=== PATIENT | female | born 1975 | race Caucasian/White ===

== ENCOUNTER 2017-06-29 09:21 | Day surgery (SDC) | payer BC ==
[~2017-06-29] VITALS: Ht 167.6 cm; Wt 113.4 kg
[~2017-06-29 09:21] MED LIST: ARIP10TA10 PO; CALC1CAP8 PO; CETI10TA17 PO; DIPH1TAB25 PO; DULO60CA6 PO; ETOD500T PO; ETOD500T2 PO; FERR240T5 PO; FEXO-104 PO; FNT100TD TD; GBPN600T PO; GELA650C4 PO; HYDR118S10 PO; LVT.1T PO; MONT10TA24 PO; NECON 1/35 PO; NECON PO; NF-ESTR1.5 PO; OLME20TA21 PO; OLME5TAB3 PO; PHEN-452 PO; PHEN37.53 PO; PRAM0.5T9 PO; PRAZ2CAP2 PO; QUET150T PO; QUET300T; QUET300T2 PO; ROSU10TA PO; TEMA30CA PO; THYR180T2 PO; TRIA16.5 NS; VALE1POW MC; VORT10TA PO; ZLP10T PO; [UNRECOGNIZED DRUG - CODE]; [UNRECOGNIZED DRUG - CODE] PO; [UNRECOGNIZED DRUG - OTHER]
--- OUTSIDE RECORDS SUMMARY | 2017-06-29 09:24 | XMS REPORT ---
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 Role Phone WASHINGTON CRUZ Unavailable Unavailable PROBLEMS Type Condition ICD9-CM Code [id number] Code Onset Dates Condition Status SNOMED Code Problem PTSD (post-traumatic stress disorder) F43.10 Active 06594990 Problem Major depressive disorder, recurrent episode, severe, specified as with psychotic behavior 296.34 Active 94093203 Problem Need for prophylactic vaccination and inoculation, Influenza V04.81 Active 375418473 Problem Posttraumatic stress disorder 309.81 Active 71986469 Problem Unspecified episodic mood disorder 296.90 Active [id number] ALLERGIES Unknown Allergies SOCIAL HISTORY No smoking Hx information available PLAN OF CARE Activity Details Follow Up Next available Reason: VITAL SIGNS MEDICATIONS Unknown Medications RESULTS No Results PROCEDURES Procedure Date Ordered Related Diagnosis Body Site Psychotherapy, patient &/family, 30 minutes, established patient Dec 28, 2015 IMMUNIZATIONS No Known Immunizations
--- OUTSIDE RECORDS SUMMARY | 2017-06-29 09:24 | XMS REPORT ---
Author Author WASHINGTON CRUZ [facility] Address Unknown Phone Unavailable Care Team Providers Care Clerical Office Name Role Phone WASHINGTON CRUZ Unavailable Unavailable PROBLEMS Type Condition ICD9-CM Code ZTL14-CX Code Onset Dates Condition Status SNOMED Code Problem Major depressive disorder, recurrent episode, severe, specified as with psychotic behavior 296.34 Active 92525134 Problem Posttraumatic stress disorder 309.81 Active 55467350 Assessment PTSD (post-traumatic stress disorder) F43.10 Jul, Active 08876781 Problem Unspecified episodic mood disorder 296.90 Active 959749398 Problem Need for prophylactic vaccination and inoculation, Influenza V04.81 Active 262272665 ALLERGIES Unknown Allergies SOCIAL HISTORY No smoking Hx information available PLAN OF CARE VITAL SIGNS MEDICATIONS Unknown Medications RESULTS No Results PROCEDURES Procedure Date Ordered Related Diagnosis Body Site Psychotherapy, patient &/family, 45 minutes, established patient August 28, 2015 IMMUNIZATIONS No Known Immunizations
--- OUTSIDE RECORDS SUMMARY | 2017-06-29 09:24 | XMS REPORT ---
Author Author WASHINGTON CRUZ [facility] [employer] Address Unknown Phone Unavailable Care Team Providers Care Prevention Rn Name Role Phone WASHINGTON CRUZ CP Unavailable Allergies No Known Allergies Problems Problem Type Condition Code Onset Dates Condition Status Problem Major depressive disorder, recurrent episode, severe, specified as with psychotic behavior 296.34 Active Problem Posttraumatic stress disorder 309.81 Active Problem PTSD (post-traumatic stress disorder) F43.10 Active Assessment PTSD (post-traumatic stress disorder) F43.10 Active Problem Unspecified episodic mood disorder 296.90 Active Problem Need for prophylactic vaccination and inoculation, Influenza V04.81 Active Medications No Known Medications Procedures Procedure Coding System Code Date Psychotherapy, patient &/family, 45 minutes, established patient CPT-4 89440 Dec 14, 2015 Results No Known Results Summary Purpose [employer] Submission
--- OUTSIDE RECORDS SUMMARY | 2017-06-29 09:24 | XMS REPORT | Continuity of Care Document ---
Author Author [facility] Address Unknown Phone Unavailable Allergies Active Description Code Type Severity Reaction Onset Reported/Identified Relationship to Patient Clinical Status Yes Wellbutrin Drug Allergy N/A N/A 03/29/2013 Yes bupropion [id number] Drug Allergy Unknown N/A 06/24/2017 Yes pseudoephedrine [id number] Drug Allergy Unknown N/A 06/24/2017 Yes triprolidine [id number] Drug Allergy Unknown N/A 06/24/2017 Medications There is no data. Problems Date Dx Coded Attending Type Code Diagnosis Diagnosed By 10/11/2012 309.81 AN PTSD 10/11/2012 309.81 AN PTSD 10/11/2012 309.81 AN PTSD 10/11/2012 ALEJANDRO ANDRADE PHD 309.81 AN PTSD 10/11/2012 ALEJANDRO ANDRADE PHD 309.81 AN PTSD 10/11/2012 LA MUÑIZ APRN 309.81 AN PTSD 10/11/2012 ALEJANDRO ANDRADE PHD 309.81 AN PTSD 10/11/2012 LA MUÑIZ APRN 309.81 AN PTSD 10/11/2012 LA MUÑIZ APRN 309.81 AN PTSD 10/11/2012 LA MUÑIZ APRN 309.81 AN PTSD 10/11/2012 LA MUÑIZ APRN 309.81 AN PTSD 10/19/2012 296.90 MOOD DISORDER NOS 10/19/2012 296.90 MOOD DISORDER NOS 10/19/2012 ALEJANDRO ANDRADE PHD 296.90 MOOD DISORDER NOS 10/19/2012 ALEJANDRO ANDRADE PHD 296.90 MOOD DISORDER NOS 10/19/2012 LA MUÑIZ APRN 296.90 MOOD DISORDER NOS 10/19/2012 ALEJANDRO ANDRADE PHD 296.90 MOOD DISORDER NOS 10/19/2012 LA MUÑIZ APRN 296.90 MOOD DISORDER NOS 10/19/2012 LA MUÑIZ APRN 296.90 MOOD DISORDER NOS 10/19/2012 LA MUÑIZ APRN 296.90 MOOD DISORDER NOS 10/19/2012 LA MUÑIZ APRN 296.90 MOOD DISORDER NOS 11/04/2012 296.34 MO DEPRESSIVE RECURRENT SEVERE WITH PSYCHOTIC BEHAVIOR 11/04/2012 LUPE LUIS, ALEJANDRO Brower 296.34 MO DEPRESSIVE RECURRENT SEVERE WITH PSYCHOTIC BEHAVIOR 11/04/2012 ALEJANDRO ANDRADE PHD 296.34 MO DEPRESSIVE RECURRENT SEVERE WITH PSYCHOTIC BEHAVIOR 11/04/2012 LA MUÑIZ APRN 296.34 MO DEPRESSIVE RECURRENT SEVERE WITH PSYCHOTIC BEHAVIOR 11/04/2012 LUPE LUIS, ALEJANDRO Brower 296.34 MO DEPRESSIVE RECURRENT SEVERE WITH PSYCHOTIC BEHAVIOR 11/04/2012 LA MUÑIZ APRN 296.34 MO DEPRESSIVE RECURRENT SEVERE WITH PSYCHOTIC BEHAVIOR 11/04/2012 LA MUÑIZ APRN 296.34 MO DEPRESSIVE RECURRENT SEVERE WITH PSYCHOTIC BEHAVIOR 11/04/2012 AL MUÑIZ APRN 296.34 MO DEPRESSIVE RECURRENT SEVERE WITH PSYCHOTIC BEHAVIOR 11/04/2012 LA MUÑIZ APRN 296.34 MO DEPRESSIVE RECURRENT SEVERE WITH PSYCHOTIC BEHAVIOR 12/28/2012 LA MUÑIZ APRN V04.81 FLU SHOT 12/28/2012 LUPE LUIS, ALEJANDRO Brower V04.81 FLU SHOT 12/28/2012 LA MUÑIZ APRN V04.81 FLU SHOT 12/28/2012 LA MUÑIZ APRN V04.81 FLU SHOT 12/28/2012 LA MUÑIZ APRN V04.81 FLU SHOT 12/28/2012 LA MUÑIZ APRN V04.81 FLU SHOT 04/13/2013 ASHLEY HOPPER MD Ot 723.1 CERVICALGIA 04/13/2013 ASHLEY HOPPER MD Ot V57.1 PHYSICAL THERAPY NEC 04/18/2013 MARLENE SARMIENTO MD Ot 354.0 CARPAL TUNNEL SYNDROME 04/22/2013 BILLIE WOODRUFF APRN Ot 300.00 ANXIETY STATE NOS 04/22/2013 BILLIE WOODRUFF APRN Ot 346.90 MIGRAINE UNSPECIFIED W/O INTRACT MGRN W/ 04/22/2013 BILLIE WOODRUFF APRN Ot 780.4 DIZZINESS AND GIDDINESS 08/08/2013 REVEAL MARLENE KERR Ot 354.0 CARPAL TUNNEL SYNDROME 08/08/2013 REVEAL MARLENE KERR Ot V74.8 SCREEN-BACTERIAL DIS NEC 01/31/2016 WARD KERR, ASHLEY Bo Ot 723.0 CERVICAL SPINAL STENOSIS 01/31/2016 REVEAL MARLENE KERR Ot 354.0 CARPAL TUNNEL SYNDROME 01/31/2016 REVEAL MARLENE KERR Ot V72.83 EXAM PRE-OPERATIVE NEC 01/31/2016 REVEAL MARLENE KERR Ot V74.8 SCREEN-BACTERIAL DIS NEC 01/31/2016 REVEAL MARLENE KERR Ot 354.0 CARPAL TUNNEL SYNDROME 01/31/2016 REVEAL MARLENE KERR Ot V72.84 EXAM PRE-OPERATIVE NOS 02/01/2016 KING KERR, ANDRES Brower Ot M79.672 PAIN IN LEFT FOOT 02/13/2016 ANDRES MALIK MD Ot M79.672 PAIN IN LEFT FOOT Procedures Code [place] [address] PSYCH DIAGNOSTIC EVALUATION 10/11/2012 69554 PSYTX PT&/FAMILY 45 MINUTES 10/20/2012 78858 PSYCH DIAG EVAL W/MED SRVCS 11/09/2012 71508 PSYTX PT&/FAMILY 45 MINUTES 11/09/2012 89581 PSYTX PT&/FAMILY 45 MINUTES 11/22/2012 54767 PSYTX PT&/FAMILY 45 MINUTES 12/06/2012 88977 PSYTX PT&/FAMILY 45 MINUTES 01/03/2013 Results There is no data. Encounters ACCT No. Visit Date/Time Discharge Status Pt. Type Provider Facility Loc./Unit Complaint [id number] 03/29/2013 15:51:00 03/29/2013 23:59:59 CLS Outpatient LA MUÑIZ APRN [id number] 01/04/2013 12:53:00 01/04/2013 23:59:59 CLS Outpatient LA MUÑIZ APRN [id number] 01/04/2013 12:53:00 01/04/2013 23:59:59 CLS Outpatient LA MUÑIZ APRN [id number] 12/31/2012 08:48:00 12/31/2012 23:59:59 CLS Outpatient LUPE LUIS, ALEJANDRO Brower [id number] 12/28/2012 14:47:00 12/28/2012 23:59:59 CLS Outpatient LA MUÑIZ APRN [id number] 12/28/2012 14:47:00 12/28/2012 23:59:59 CLS Outpatient LA MUÑIZ APRN [id number] 12/03/2012 13:40:00 12/03/2012 23:59:59 CLS Outpatient ALEJANDRO ANDRADE PHD [id number] 11/19/2012 08:48:00 11/19/2012 23:59:59 CLS Outpatient ALEJANDRO ANDRADE PHD [id number] 11/05/2012 08:48:00 Document Registration [id number] 10/19/2012 16:31:00 Document Registration [id number] 10/11/2012 09:53:00 Document Registration [id number] 06/24/2017 06:08:00 06/24/2017 16:17:00 DIS Outpatient BRANDON ALARCON MD [facility] PREOP EGD [id number] 01/31/2016 10:07:00 01/31/2016 23:59:59 CLS Outpatient ANDRES MALIK MD [facility] RAD LT FOOT PAIN [id number] 08/08/2013 07:54:00 08/08/2013 12:05:00 DIS Outpatient MARLENE SARMIENTO MD Via [facility] LEFT CARPAL TUNNEL SYNDROME [id number] 08/03/2013 09:02:00 08/03/2013 23:59:59 [facility] [id number] 04/22/2013 14:39:00 04/22/2013 17:30:00 DIS Emergency BILLIE WOODRUFF APRN [facility] ER MULTIPLE COMPLAINTS [id number] 04/18/2013 06:08:00 04/18/2013 10:00:00 DIS Outpatient MARLENE SARMIENTO MD Via [facility] RIGHT CARPAL TUNNEL SYNDROME [id number] 04/13/2013 08:04:00 04/13/2013 17:00:00 DIS Outpatient ASHLEY HOPPER MD [facility] REHAB CERVICALGIA [id number] 04/12/2013 09:00:00 04/12/2013 23:59:59 CLS Outpatient MARLENE SARMIENTO MD [facility] PREOP RIGHT CARPAL TUNNEL SYNDROME [id number] 03/25/2013 12:35:00 03/25/2013 23:59:59 CLS Outpatient WARD KERR, ASHLEY Bo [facility] RAD CERVICAL PAIN [id number] 06/29/2017 11:45:00 PEN Preadmit AGNES KERR, BRANDON [place] [facility] ENDO DYSPAGIA [id number] 12/18/2016 15:31:59 12/18/2016 23:59:59 CLS Outpatient Nick [place]
[2017-06-29] MEDS ORDERED: NS IV 500 ML 500 ML IV PRN (09:35)
[2017-06-29 09:45] VITALS: BP 114/62
[2017-06-29] MEDS ORDERED: fentaNYL INJECTION 100 MCG/2 ML AMP IVP PRN (09:45)
[2017-06-29] MEDS ORDERED: HURRICAINE EXT TUBE (BENZOCAINE) XX PRN (09:45)
[2017-06-29] MEDS ORDERED: NS IV 500 ML 500 ML ONE (10:11)
[2017-06-29] MEDS ORDERED: MIDAZOLAM 2 MG/2 ML (VERSED) VIAL ONE ×3 (12:05)
[2017-06-29] MEDS ORDERED: fentaNYL INJECTION 100 MCG/2 ML AMP ONE (12:05)
--- NOTE | 2017-06-29 12:13 | History & Physicial ---
History of Present Illness History of Present Illness Reason for visit/HPI to undergo an upper endoscopy regarding dysphagia Date of Admission 06/29/17 Date Seen by Provider: Jun 29, 2017 Time Seen by Provider: 12:07 I consulted on this patient on 06/29/17 12:06 Attending Physician Brandon Zamora MD Admitting Physician Merrill Becker MD Consult Allergies and Home Medications Allergies Coded Allergies: bupropion (Verified Allergy, Unknown, 06/24/17) pseudoephedrine (Verified Allergy, Unknown, 06/24/17) triprolidine (Verified Allergy, Unknown, 06/24/17) Home Medications Aripiprazole 10 Mg Tablet, 10 MG PO DAILY, (Reported) Calcium Carb/D3/Mag Aa Chelate 1 Each Capsule, 1 CAP PO BID, (Reported) Cetirizine HCl 10 Mg Tablet, 10 MG PO DAILY, (Reported) Cetirizine Hcl 10 Mg Tablet, 10 MG PO DAILY, (Reported) Diphenoxylate HCl/Atropine 1 Each Tablet, 1 EACH PO QID, (Reported) Estropipate 1.5 Mg Tab, 0.75 MG PO DAILY, (Reported) Etodolac 500 Mg Tab.er.24h, 500 MG PO BID, (Reported) Ferrous Gluconate 240 Mg Tablet, 27 MG PO DAILY, (Reported) Flurazepam Hcl 15 Mg Capsule, 2 CAP PO HS Prescribed by: TARUN WOLF on 08/08/13 0911 Gelatin 650 Mg Capsule, 1,300 MG PO DAILY, (Reported) Levothyroxine Sodium 100 Mcg Tablet, 100 MCG PO DAILY, (Reported) Montelukast Sodium 10 Mg Tablet, 10 MG PO DAILY, (Reported) Olmesartan Medoxomil 5 Mg Tablet, 5 MG PO DAILY, (Reported) Olmesartan Medoxomil 20 Mg Tablet, 5 MG PO DAILY, (Reported) Phentermine HCl 37.5 Mg Tablet, 37.5 MG PO DAILY, (Reported) Quetiapine Fumarate 150 Mg Tab.sr.24h, 150 MG PO DAILY, (Reported) Quetiapine Fumarate 300 Mg Tablet, 300 MG PO DAILY, (Reported) Rosuvastatin Calcium 10 Mg Tablet, 10 MG PO DAILY, (Reported) Temazepam 30 Mg Capsule, 30 MG PO HS, (Reported) Thyroid,Pork 180 Mg Tablet, 180 MG PO DAILY, (Reported) Triamcinolone Acetonide 16.5 Gm [place], 1 SPRAY NS DAILY, (Reported) Valerian Root 1,000 Gm Powder, 3,000 GM MC PRN PRN for INSOMNIA, (Reported) Vortioxetine Hydrobromide 10 Mg Tablet, 10 MG PO DAILY, (Reported) Zolpidem Tartrate 10 Mg Tab, 10 MG PO HS PRN for SLEEP, (Reported) NEEDED FOR SLEEP [Necon 50] , 1 TAB PO DAILY, (Reported) Patient Home Medication List Home Medication List Reviewed: Yes Past Jffwbth-Rmmbvm-Qcsjeb Hx Patient Social History Marrital Status: Employed/Student: unemployed Alcohol Use: Denies Use Recreational Drug Use: No Smoking Status: Former Smoker Former Smoker, Quit: Jun 24, 2004 Recent Foreign Travel: No Contact w/other who traveled: No Recent Hopitalizations: No Recent Infectious Disease Expo: No Immunizations Up To Date Date of Pneumonia Vaccine: Nov 30, 2009 Date of Influenza Vaccine: Dec 15, 2016 Seasonal Allergies Seasonal Allergies: Yes Surgeries Yes Appendectomy, Tonsillectomy, Tubal Ligation Cardiovascular Yes Heart Murmur, High Cholesterol, Irregular Heartbeat Neurological Yes Headaches /Migraines Reproductive System Hx Reproductive Disorders: No Sexually Transmitted Disease: No HIV/AIDS: No Gastrointestinal Yes Gastroesophageal Reflux, Chronic Diarrhea, Irritable Bowel Musculoskeletal Yes Degenerate Disk Disease, Arthritis, Chronic Back Pain Endocrine History of Endocrine Disorders: Yes Endocrine Disorders: Hypothyroidsim HEENT Loss of Vision: Denies Hearing Impairment: Denies Psychosocial History of Psychiatric Problem: Yes Behavioral Health Disorders: Anxiety, Depression Integumentary History of Skin or Integumenta: Yes Skin/Integumentary Disorders: Eczema Blood Transfusions Adverse Reaction to a Blood Tr: No (N/A) Constitutional: no symptoms reported EENTM: no symptoms reported Respiratory: no symptoms reported Cardiovascular: no symptoms reported Gastrointestinal: see HPI Genitourinary: no symptoms reported Musculoskeletal: back pain, joint pain Skin: see HPI, dryness Psychiatric/Neurological: Anxiety Physical Exam Vital Signs Vital Signs - First Documented 06/29/17 09:45 Temp 99.1 Pulse 82 Resp 20 B/P (MAP) 114/62 (79) Pulse Ox 96 O2 Delivery Room Air Capillary Refill : General Appearance: No Apparent Distress Neck: Normal Inspection Respiratory: Lungs Clear Cardiovascular: Regular Rate, Rhythm Gastrointestinal: Non Tender, Soft Extremity: Normal Inspection Neurologic/Psychiatric: Alert, Oriented x3 Skin: Warm/Dry Assessment/Plan Assessment and Plan lady with dysphagia. For upper endoscopy with possible balloon dilatation. If no stricture is identified, she would be referred for esophageal manometry Admission Diagnosis Admission Status: Other (Outpt Proc) BRANDON ZAMORA MD Jun 29, 2017 12:13 pm
--- NOTE | 2017-06-29 12:14 | Conscious Sedation/ASA ---
Conscious Sedation Pre-Proced Time Reviewed: 12:14 ASA Class: 2 Airway Mallampati Classification: ([place] appropriate class) I. II. III, IV Lungs Heart ASA score ASA 1: a normal healthy patient ASA 2: a patient with a mild systemic disease (mid diabetes, controlled hypertension, obesity ASA 3: a patient with a severe systemic disease that limits activity (angina , COPD, prior Myocardial infarction) ASA 4: a patient with an incapacitating disease that is a constant threat to life (CHF, renal failure) ASA 5: a moribund patient not expected to survive 24 hrs. (ruptured aneurysm) ASA 6: a declared brain patient whose organs are being harvested. For emergent operations, add the letter E after the classification Grade 2 Sedation Plan: Discussed options with patient/fam Note The patient is an appropriate candidate to undergo the planned procedure, sedation, and anesthesia. The patient immediately re-assessed prior to indication. BRANDON ALARCON MD Jun 29, 2017 12:14 pm
[2017-06-29] MEDS: MIDAZOLAM 2 MG/2 ML (VERSED) VIAL IVP PRN ×3 (12:28→12:36)
--- NOTE | 2017-06-29 12:41 | Endo Procedure Record ---
Endo Procedure Report Date of Procedure Last Colonoscopy: Yes (UNSURE) Jun 29, 2017 Surgeon (s) BRANDON ALARCON MD Post Procedure/Op Diagnosis Severe esophagitis with a linear ulcer extending up to 30 cm from the incisor tooth Distal gastritis Procedure Performed EGD with antral biopsy Description of Procedure Anesthesia Type: Conscious Sedation Specimen(s) collected/removed antral mucosa for H. pylori Description of the Procedure Indication for the procedure: This lady came in for an upper endoscopy to investigate intermittent dysphagia. Informed consent was obtained after reviewing the procedure in detail. Description of the procedure: She was placed in left lateral decubitus position and her vital signs were monitored. Conscious sedation was achieved using Versed and fentanyl. The flexible gastroscope was introduced down the esophagus , past the stomach, into the proximal duodenum. Findings: Esophagus: Quite severe esophagitis with a linear ulcer extending proximally up to 30 cm from the incisor tooth. No stricture was identified. Stomach: Mild distal gastritis. Antral biopsy for H. pylori was obtained. Duodenum: Normal She tolerated the procedure well and was taken back to the nursing area in a stable condition. Impression: Dysphagia. No stricture. Severe esophagitis. Will treat with proton pump inhibitors Copies To: ANDRES MALIK MD, XAVIER M MD Jun 29, 2017 12:41 pm
[2017-06-29] MEDS ORDERED: PANT40TA2 PO (12:43)
--- NOTE | 2017-06-29 12:44 | Discharge Inst-Simple/Standard ---
Discharge Inst-Standard Discharge Medications New, Converted or Re-Newed RX: RX on Chart Patient Instructions/Follow Up Plan of Care/Instructions/FU: Follow-up with her primary in 2-3 weeks Activity as Tolerated: Yes Discharge Diet: No Restrictions BRANDON ALARCON MD Jun 29, 2017 12:44 pm
[2017-06-29] MEDS ORDERED: HURRICAINE EXT TUBE (BENZOCAINE) ONE (12:53)
[2017-06-29 13:05] VITALS: BP 132/69
[2017-06-29 13:25] VITALS: BP 127/66
[2017-06-29 13:35] VITALS: BP 127/66
[2017-06-29 13:45] VITALS: BP 127/66
== END 2017-06-29 13:45 | disposition home or self-care (01) ==
LOC: ENDO 09:21
PROVIDERS: ATTEND Surgery
DX: K20.9 Esophagitis, unspecified (principal); K25.9 Gastric ulcer, unspecified as acute or chronic, without hemorrhage or perforation; K29.70 Gastritis, unspecified, without bleeding; Z79.899 Other long term (current) drug therapy; Z87.891 Personal history of nicotine dependence; E78.00 Pure hypercholesterolemia, unspecified; F41.9 Anxiety disorder, unspecified; F32.9 Major depressive disorder, single episode, unspecified
CPT/HCPCS: 84703; 88305

== ENCOUNTER → 2017-09-18 | Outpatient (CLI) | payer BC ==
[~2017-09-18] MED LIST changes: +PANT40TA2 PO
--- NOTE | 2017-09-18 11:31 | Diagnostic Imaging Report ---
Indication: Pain Comparison: None Findings: Three views of the left ankle are obtained. No acute fracture or malalignment or osseous destructive process. Ankle joint space is preserved. There is mild soft tissue swelling. There is plantar calcaneal spurring. Impression: Soft tissue swelling without evidence of an acute osseous abnormality. Mild plantar calcaneal spurring. Dictated by: Dictated on workstation # [id number]
--- NOTE | 2017-09-18 11:41 | Diagnostic Imaging Report ---
INDICATION: Pain and popping in left ankle and to the top of the foot. Symptoms for over a month with no known injury.. TECHNIQUE: 3 views of the left foot CORRELATION STUDY: None FINDINGS: The osseous structures of the foot are intact. Joint spaces are maintained. Alignment anatomic. Prominent, 6 mm plantar calcaneal spur is present. Soft tissues appearing unremarkable. IMPRESSION: 1. Negative for acute findings of the foot. Dictated by: Dictated on workstation # [id number]
== END ==
LOC: RAD 10:29
DX: M77.32 Calcaneal spur, left foot (principal); M79.89 Other specified soft tissue disorders
CPT/HCPCS: 73610; 73630

== ENCOUNTER → 2017-11-12 | Outpatient (CLI) | payer BC ==
--- NOTE | 2017-11-12 13:05 | Diagnostic Imaging Report ---
PROCEDURE: MRI left joint lower extremity without contrast. TECHNIQUE: Multiplanar, multisequence non contrast-enhanced MRI of the left lower extremity was accomplished. INDICATION: Ankle pain. No prior studies are available for comparison. The marrow signal intensity of the ankle appears normal. No definite marrow edema is identified, although there does appear to be some mid foot degenerative changes noted on the sagittal sequences. Talar dome appears to be smooth. No osteochondral lesion is identified. The Achilles tendon has normal morphology and signal intensity. No tear is identified. The peroneus brevis and longus tendons are intact. The posterior tibialis, flexor digitorum and flexor hallucis longus tendons appear to be intact. The anterior and posterior syndesmotic ligaments as well as the anterior and posterior talofibular ligaments appear to be intact. The superficial and deep bundles of the deltoid appear to be intact. Minimal nonspecific edema in the subcutaneous tissues of the medial and lateral ankle is noted and unremarkable. No fluid collections are seen. IMPRESSION: Essentially unremarkable MRI of the left ankle. No ligamentous or tendinous abnormality is identified. Dictated by: Dictated on workstation # [id number]
== END ==
LOC: RAD 09:38
PROVIDERS: ATTEND Podiatrist
DX: M25.572 Pain in left ankle and joints of left foot (principal)
CPT/HCPCS: 73721

== ENCOUNTER → 2018-11-30 | Outpatient (CLI) | payer BC ==
[~2018-11-30] MED LIST changes: -ROSU10TA PO; +ROSU10TA22 PO
--- NOTE | 2018-11-30 12:43 | Diagnostic Imaging Report ---
INDICATION: Screening for osteoporosis. COMPARISON: None. FINDINGS: The bone mineral density in the hips and spine was measured. There are no prior studies available for comparison. The T score for the spine is -0.5. This value does fall within the range of normal. The total T score for the left hip is 0.4 and for the left femoral neck 0.0. The total T score for the right hip is 0.7. The T score for the right femoral neck is -0.2. AP Spine L1-L4: [BMD (g/cm2): 1.135] [T-Score: -0.5] [Z-Score: -1.7] [BMD Previous: na] [BMD % Change: na] LT Hip Neck: [BMD (g/cm2): 1.040] [T-Score: 0.0] [Z-Score: -0.2] LT Hip Total: [BMD (g/cm2):1.059] [T-Score:0.4] [Z-Score: -0.1] [BMD Previous: na] [BMD % Change: na] RT Hip Neck: [BMD (g/cm2):1.015] [T-Score:-0.2] [Z-Score:-0.4] RT Hip Total: [BMD (g/cm2):1.101] [T-score:0.7] [Z-Score:0.2] [BMD Previous:na] [BMD % Change:na] *Indicates significant change from prior examination based on 95% confidence level. World Health Organization criteria for BMD interpretation classify patients as Normal (T-score at or above -1.0), Osteopenic (T-score between -1.0 and -2.5) or Osteoporotic (T-score at or below -2.5). LIMITATIONS AND MODIFICATION: None. FRACTURE RISK (FRAX SCORE): The ten year probability of (%): Major Osteoporotic Fracture: [na] Hip Fracture: [na] IMPRESSION: 1. The bone mineral density of the hips and spine is within normal limits. 2. See below National Osteoporosis Foundation guidelines on when to potentially initiate pharmacologic therapy. Based on the National Osteoporosis Foundation Guidelines, pharmacologic treatment should be initiated in any of the following, unless clinical conditions suggest otherwise: * Any patient with prior fragility fracture of the hip or vertebrae. A spine fracture indicates 5X risk for subsequent spine fracture and 2X risk for subsequent hip fracture. * Osteoporosis (T-score <-2.5). * Postmenopausal women and men age 50 and older with low bone mass/osteopenia (T-score between -1.0 and -2.5) by DXA and 10-year major osteoporotic fracture greater than 20% or a 10-year probability of hip fracture greater than 3%. These fracture risks are supplied above in the FRAX score, if applicable. * Clinician judgement and/or patient preferences may indicate treatment for people with 10-year fracture probabilities above or below these levels. Dictated by: Dictated on workstation # [id number]
== END ==
LOC: RAD 11:02
DX: Z13.820 Encounter for screening for osteoporosis (principal); M81.0 Age-related osteoporosis without current pathological fracture
CPT/HCPCS: 77080

== ENCOUNTER → 2019-03-22 | Outpatient (CLI) | payer BC ==
--- NOTE | 2019-03-22 09:29 | Diagnostic Imaging Report ---
PROCEDURE: CT abdomen and pelvis without contrast. TECHNIQUE: Multiple contiguous axial images were obtained through the abdomen and pelvis without the use of intravenous contrast. Auto Exposure Controls were utilized during the CT exam to meet ALARA standards for radiation dose reduction. INDICATION: Right upper quadrant pain, vomiting. Study compared to 05/07/2008. FINDINGS: The gallbladder appeared unremarkable. The unopacified liver parenchyma unremarkable. No bile duct dilatation. Spleen, adrenals and pancreas are unremarkable. There has been interval appendectomy. No bowel obstruction. No perienteric or pericolonic inflammatory changes. The uterus, adnexa and urinary bladder unremarkable. Aorta is nonaneurysmal. Spleen normal in size. No radiodense urinary tract stones. No hydroureteronephrosis. No perinephric or periureteric edema. No focal inflammatory process. The lung bases in the osseous structures nonacute. 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 No acute osseous abnormality. The lung bases nonacute. IMPRESSION: No obstructive features, inflammatory process, stone disease or acute abnormalities found. Dictated by: Dictated on workstation # [id number]
== END ==
LOC: RAD 08:22
PROVIDERS: ATTEND Nurse Practitioner Family
DX: R10.11 Right upper quadrant pain (principal)
CPT/HCPCS: 74176

== ENCOUNTER → 2019-04-04 | Outpatient (CLI) | payer BC ==
[~2019-04-04] MED LIST changes: +CATHETER FLUSH 10 ML SYR IV PRN
--- NOTE | 2019-04-04 15:02 | Diagnostic Imaging Report ---
INDICATION: Right upper quadrant pain. TECHNIQUE: Patient was administered 5.2 mCi technetium 99m Choletec intravenously and imaging over the abdomen was performed. After 60 minutes, patient ingested one can of Ensure and gallbladder ejection fraction was calculated. FINDINGS: Homogeneous uptake of activity by the liver is noted. There is prompt excretion of activity into the common duct and gallbladder. There is normal passage of activity into the small bowel. Gallbladder ejection fraction is normal at 79%. IMPRESSION: Normal HIDA scan and gallbladder ejection fraction. Dictated by: Dictated on workstation # [id number]
== END ==
LOC: CARD 12:14
PROVIDERS: ATTEND Nurse Practitioner Family
DX: R10.11 Right upper quadrant pain (principal)
CPT/HCPCS: 78227

== ENCOUNTER 2020-07-29 19:53 | Emergency (ER) | payer BC ==
[~2020-07-29] VITALS: Ht 165.1 cm; Wt 114.8 kg
[~2020-07-29 19:53] MED LIST changes: -CATHETER FLUSH 10 ML SYR IV PRN; -MONT10TA24 PO; +MONT10TA32 PO
[2020-07-29 20:13] VITALS: BP 135/87
--- NOTE | 2020-07-29 20:35 | ED Abdominal Pain ---
General Chief Complaint: Abdominal/GI Problems Stated Complaint: ABD PAIN Source of Information: Patient Exam Limitations: No Limitations History of Present Illness Date Seen by Provider: July 29, 2020 Time Seen by Provider: 20:33 Initial Comments With severe right lower quadrant abdominal pain that began this evening and seemed to get quite a bit worse after eating. History of appendectomy. She takes opium tincture for severe irritable bowel syndrome. Timing/Duration: 1-3 Hours Severity/Quality: Moderate Location: RLQ Radiation: No Radiation Activities at Onset: None Associated Symptoms: Nausea/Vomiting Allergies and Home Medications Allergies Coded Allergies: bupropion (Verified Allergy, Unknown, 06/24/17) pseudoephedrine (Verified Allergy, Unknown, 06/24/17) triprolidine (Verified Allergy, Unknown, 06/24/17) Home Medications Aripiprazole 10 Mg Tablet, 10 MG PO DAILY, (Reported) Calcium Carb/D3/Mag Aa Chelate 1 Each Capsule, 1 CAP PO BID, (Reported) Cetirizine HCl 10 Mg Tablet, 10 MG PO DAILY, (Reported) Cetirizine Hcl 10 Mg Tablet, 10 MG PO DAILY, (Reported) Diphenoxylate HCl/Atropine 1 Each Tablet, 1 EACH PO QID, (Reported) Estropipate 1.5 Mg Tab, 0.75 MG PO DAILY, (Reported) Etodolac 500 Mg Tab.er.24h, 500 MG PO BID, (Reported) Ferrous Gluconate 240 Mg Tablet, 27 MG PO DAILY, (Reported) Flurazepam Hcl 15 Mg Capsule, 2 CAP PO HS Prescribed by: TARUN WOLF on 08/08/13 0911 Gelatin 650 Mg Capsule, 1,300 MG PO DAILY, (Reported) Levothyroxine Sodium 100 Mcg Tablet, 100 MCG PO DAILY, (Reported) Montelukast Sodium 10 Mg Tablet, 10 MG PO DAILY, (Reported) Olmesartan Medoxomil 5 Mg Tablet, 5 MG PO DAILY, (Reported) Olmesartan Medoxomil 20 Mg Tablet, 5 MG PO DAILY, (Reported) Pantoprazole Sodium 40 Mg Tablet.dr, 40 MG PO DAILY Prescribed by: BRANDON ALARCON on 06/29/17 1243 Phentermine HCl 37.5 Mg Tablet, 37.5 MG PO DAILY, (Reported) Quetiapine Fumarate 150 Mg Tab.sr.24h, 150 MG PO DAILY, (Reported) Quetiapine Fumarate 300 Mg Tablet, 300 MG PO DAILY, (Reported) Rosuvastatin Calcium 10 Mg Tablet, 10 MG PO DAILY, (Reported) Temazepam 30 Mg Capsule, 30 MG PO HS, (Reported) Thyroid,Pork 180 Mg Tablet, 180 MG PO DAILY, (Reported) Triamcinolone Acetonide 16.5 Gm [place], 1 SPRAY NS DAILY, (Reported) Valerian Root 1,000 Gm Powder, 3,000 GM MC PRN PRN for INSOMNIA, (Reported) Vortioxetine Hydrobromide 10 Mg Tablet, 10 MG PO DAILY, (Reported) Zolpidem Tartrate 10 Mg Tab, 10 MG PO HS PRN for SLEEP, (Reported) NEEDED FOR SLEEP [[place] ] , 1 TAB PO DAILY, (Reported) Patient Home Medication List Home Medication List Reviewed: Yes Review of Systems Review of Systems Constitutional: see HPI EENTM: No Symptoms Reported Respiratory: No Symptoms Reported Cardiovascular: No Symptoms Reported Gastrointestinal: See HPI, Abdominal Pain Genitourinary: No Symptoms Reported Musculoskeletal: no symptoms reported Skin: no symptoms reported Psychiatric/Neurological: No Symptoms Reported Endocrine: No Symptoms Reported Hematologic/Lymphatic: No Symptoms Reported Past [id number] Hx Patient Social History Former Smoker, Quit: Jun 24, 2004 Recent Hopitalizations: No Immunizations Up To Date Date of Pneumonia Vaccine: Nov 30, 2009 Date of Influenza Vaccine: Dec 15, 2016 Seasonal Allergies Seasonal Allergies: Yes Past Medical History Surgeries: Yes Appendectomy, Tonsillectomy, Tubal Ligation Asthma Cardiac: Yes Heart Murmur, High Cholesterol, Irregular Heartbeat Neurological: Yes Headaches /Migraines Reproductive Disorders: No Sexually Transmitted Disease: No HIV/AIDS: No Gastrointestinal: Yes Gastroesophageal Reflux, Chronic Diarrhea, Irritable Bowel Musculoskeletal: Yes Degenerate Disk Disease, Arthritis, Chronic Back Pain Endocrine: Yes Hypothyroidsim Loss of Vision: Denies Hearing Impairment: Denies Psychosocial: Yes Anxiety, Depression Integumentary: Yes Eczema Adverse Reaction/Blood Tranf: No (N/A) Physical Exam Vital Signs Vital Signs - First Documented 07/29/20 20:13 Temp 36.8 Pulse 70 Resp 16 B/P (MAP) 135/87 (103) O2 Delivery Room Air Capillary Refill : Height/Weight/BMI Height: 5'6.00" Weight: 250lbs. 0.0oz. 113.573103dp; 40.4 BMI Method:Stated General Appearance: WD/WN, no apparent distress, obese Respiratory: no respiratory distress, no accessory muscle use Gastrointestinal: normal bowel sounds, soft, tenderness Extremities: normal range of motion, non-tender Neurologic/Psychiatric: alert, normal mood/affect, oriented x 3 Skin: normal color, warm/dry Procedures/Interventions IV : Location: Left Site: Antecubital IV Catheter Type: Peripheral IV IV Catheter Gauge: 22 Progress US guided Progress/Results/Core Measures Results/Orders Lab Results Laboratory Tests Test 07/29/20 20:30 Range/Units White Blood Count 10.7 4.3-11.0 10^3/uL Red Blood Count 4.03 3.80-5.11 10^6/uL Hemoglobin 12.0 11.5-16.0 g/dL Hematocrit 36 35-52 % Mean Corpuscular Volume 90 80-99 fL Mean Corpuscular Hemoglobin 30 25-34 pg Mean Corpuscular Hemoglobin Concent 33 32-36 g/dL Red Cell Distribution Width 13.5 10.0-14.5 % Platelet Count 353 130-400 10^3/uL Mean Platelet Volume 9.1 9.0-12.2 fL Immature Granulocyte % (Auto) 0 % Neutrophils (%) (Auto) 63 42-75 % Lymphocytes (%) (Auto) 27 12-44 % Monocytes (%) (Auto) 8 0-12 % Eosinophils (%) (Auto) 2 0-10 % Basophils (%) (Auto) 1 0-10 % Neutrophils # (Auto) 6.7 1.8-7.8 10^3/uL Lymphocytes # (Auto) 2.9 1.0-4.0 10^3/uL Monocytes # (Auto) 0.8 0.0-1.0 10^3/uL Eosinophils # (Auto) 0.2 0.0-0.3 10^3/uL Basophils # (Auto) 0.1 0.0-0.1 10^3/uL Immature Granulocyte # (Auto) 0.0 0.0-0.1 10^3/uL Urine Color YELLOW Urine Clarity CLEAR Urine pH 6.0 5-9 Urine Specific [place] 1.020 1.016-1.022 Urine Protein NEGATIVE NEGATIVE Urine Glucose (UA) 3+ H NEGATIVE Urine Ketones NEGATIVE NEGATIVE Urine Nitrite NEGATIVE NEGATIVE Urine Bilirubin NEGATIVE NEGATIVE Urine Urobilinogen 0.2 < = 1.0 MG/DL Urine Leukocyte Esterase NEGATIVE NEGATIVE Urine RBC (Auto) NEGATIVE NEGATIVE Urine RBC NONE /HPF Urine WBC NONE /HPF Urine Crystals PRESENT H /LPF Urine Amorphous Sediment RARE UGO URATES H /LPF Urine Bacteria NEGATIVE /HPF Urine Casts NONE /LPF Urine Mucus NEGATIVE /LPF Urine Culture Indicated NO Sodium Level 137 135-145 MMOL/L Potassium Level 3.3 L 3.6-5.0 MMOL/L Chloride Level 109 H 98-107 MMOL/L Carbon Dioxide Level 18 L 21-32 MMOL/L Anion Gap 10 5-14 MMOL/L Blood Urea Nitrogen 9 7-18 MG/DL Creatinine 1.00 0.60-1.30 MG/DL Estimat Glomerular Filtration Rate 60 BUN/Creatinine Ratio 9 Glucose Level 91 70-105 MG/DL Calcium Level 9.3 8.5-10.1 MG/DL Corrected Calcium 8.9 8.5-10.1 MG/DL Total Bilirubin 0.4 0.1-1.0 MG/DL Aspartate Amino Transf (AST/SGOT) 16 5-34 U/L Alanine Aminotransferase (ALT/SGPT) 19 0-55 U/L Alkaline Phosphatase 33 L 40-136 U/L Total Protein 7.0 6.4-8.2 GM/DL Albumin 4.5 3.2-4.5 GM/DL My Orders Orders - BILLIE WOODRUFF APRN Cbc With Automated Diff (07/29/20 20:32) Comprehensive Metabolic Panel (07/29/20 20:32) Ua Culture If Indicated (07/29/20 20:32) Ed Iv/Invasive Line Start (07/29/20 20:32) Ct Abd/Pelvis Wo(Kidney Stone) (07/29/20 20:32) Ns Iv 1000 Ml (Sodium Chloride 0.9%) (07/29/20 20:45) Ondansetron Injection (Zofran Injectio (07/29/20 20:45) Ketorolac Injection (Toradol Injection) (07/29/20 20:45) Rx-Hydrocodone/Apap 5-325 Mg (Rx-Vicodin (07/29/20 21:15) Medications Given in ED Current Medications Medications Dose Ordered Sig/Trevon Route Start Time Stop Time Status Last Admin Dose Admin Acetaminophen/ Hydrocodone Bitart 1 ea Q4H PRN PO 07/29/20 21:15 07/29/20 21:09 1 EA Ketorolac Tromethamine 15 mg ONCE ONCE IVP 07/29/20 20:45 07/29/20 20:46 DC 07/29/20 21:09 15 MG Ondansetron HCl 4 mg ONCE ONCE IVP 07/29/20 20:45 07/29/20 20:46 DC 07/29/20 21:09 4 MG Vital Signs/I&O 07/29/20 20:13 Temp 36.8 Pulse 70 Resp 16 B/P (MAP) 135/87 (103) O2 Delivery Room Air Departure Impression Primary Impression: RLQ abdominal pain Disposition: HOME, SELF-CARE Condition: Stable Departure-Patient Inst. Decision time for Depature: 20:58 Referrals: ANDRES MALIK MD (PCP/Family) Primary Care Physician Patient Instructions: No Instuctions Given Add. Discharge Instructions: Return to ER for any concerns All discharge instructions reviewed with patient and/or family. Voiced understanding. Copy Copies To 1: ANDRES MALIK MD, [employer] July 29, 2020 20:35
[2020-07-29 20:37] LABS: BASOPHILS # (AUTO) 0.1 10^3/uL (0.0-0.1); BASOPHILS % (AUTO) 1 % (0-10); BILIRUBIN,URINE NEGATIVE (NEGATIVE); CLARITY,URINE CLEAR; COLOR,URINE YELLOW; EOSINOPHILS # (AUTO) 0.2 10^3/uL (0.0-0.3); EOSINOPHILS % (AUTO) 2 % (0-10); GLUCOSE, URINE (UA) 3+ (NEGATIVE); HEMATOCRIT 36 % (35-52); KETONES,URINE NEGATIVE (NEGATIVE); LEUKOCYTE ESTERASE ,URINE NEGATIVE (NEGATIVE); LYMPHOCYTES # (AUTO) 2.9 10^3/uL (1.0-4.0); LYMPHOCYTES % (AUTO) 27 % (12-44); MEAN CORPUSCULAR HEMOGLOBIN 30 pg (25-34); MEAN CORPUSCULAR HGB CONC 33 g/dL (32-36); MEAN CORPUSCULAR VOLUME 90 fL (80-99); MEAN PLATELET VOLUME 9.1 fL (9.0-12.2); MONOCYTES # (AUTO) 0.8 10^3/uL (0.0-1.0); MONOCYTES % (AUTO) 8 % (0-12); NEUTROPHILS # (AUTO) 6.7 10^3/uL (1.8-7.8); NEUTROPHILS % (AUTO) 63 % (42-75); NITRITE,URINE NEGATIVE (NEGATIVE); PLATELET COUNT 353 10^3/uL (130-400); PROTEIN,URINE NEGATIVE (NEGATIVE); WHITE BLOOD COUNT 10.7 10^3/uL (4.3-11.0)
[2020-07-29 20:43] LABS: BACTERIA,URINE NEGATIVE /HPF
[2020-07-29 20:44] LABS: AMORPHOUS SEDIMENT,UR RARE AMOR URATES /LPF
[2020-07-29] MEDS ORDERED: KETOROLAC 30 MG/ML VIAL IVP ONE (20:45)
[2020-07-29] MEDS ORDERED: ONDANSETRON 4 MG/2 ML (SDV) Z0FRAN IVP ONE (20:45)
[2020-07-29] MEDS ORDERED: NS IV 1000 ML 1,000 ML IV SCH (20:45)
--- NOTE | 2020-07-29 20:55 | Diagnostic Imaging Report ---
PROCEDURE: CT urinary tract, rule out kidney stone. TECHNIQUE: Multiple contiguous axial images were obtained through the abdomen and pelvis without the use of intravenous contrast. Auto Exposure Controls were utilized during the CT exam to meet ALARA standards for radiation dose reduction. INDICATION: Right lower quadrant pain. FINDINGS: The heart size is normal. The lung bases are clear. The liver is normal in size and without focal lesions. Gallbladder is unremarkable. There is no biliary ductal dilatation. Spleen is normal. The pancreas and adrenal glands are unremarkable. Kidneys are normal in appearance. Specifically, there is no evidence of nephrolithiasis or obstructive uropathy. The aorta is nonaneurysmal. The bowel gas pattern is nonspecific. There is no free air. There is no ascites. There are no focal inflammatory changes. Uterus is normal. The bladder is normal. There is no pelvic mass, adenopathy or free fluid. IMPRESSION: Unremarkable noncontrast CT abdomen and pelvis. Specifically, there is no evidence of nephrolithiasis or obstructive uropathy. Dictated by: Dictated on workstation # [id number]
[2020-07-29 20:56] LABS: ALBUMIN 4.5 GM/DL (3.2-4.5); BILIRUBIN,TOTAL 0.4 MG/DL (0.1-1.0); CALCIUM 9.3 MG/DL (8.5-10.1); POTASSIUM 3.3 MMOL/L (3.6-5.0)
== END 2020-07-29 21:23 | disposition home or self-care (01) ==
LOC: EDUNIT# 19:53 → ER 19:55
DX: R10.31 Right lower quadrant pain (principal); J45.909 Unspecified asthma, uncomplicated; E78.00 Pure hypercholesterolemia, unspecified; K21.9 Gastro-esophageal reflux disease without esophagitis; K58.9 Irritable bowel syndrome, unspecified; E03.9 Hypothyroidism, unspecified; F41.9 Anxiety disorder, unspecified; F32.9 Major depressive disorder, single episode, unspecified; Z87.891 Personal history of nicotine dependence; Z90.89 Acquired absence of other organs; Z79.890 Hormone replacement therapy; Z79.899 Other long term (current) drug therapy
CPT/HCPCS: 36415; 74176; 80053; 81000; 85025

== ENCOUNTER 2022-05-06 12:18 | Outpatient (CLI) | payer BC ==
[~2022-05-06 12:18] MED LIST changes: +MONT-40 PO; -MONT10TA32 PO; +NF-CRES10T PO; -OLME20TA21 PO; +OLME20TA75 PO; -PHEN37.53 PO; +PHEN37.58 PO; -ROSU10TA22 PO
== END 2022-05-06 12:45 ==
LOC: SLEEP 12:18
PROVIDERS: ATTEND Otolaryngology Otolaryngology/Facial Plastic Surgery
DX: G47.33 Obstructive sleep apnea (adult) (pediatric) (principal)
CPT/HCPCS: G0399